=== PATIENT | female | born 2000 | race Caucasian/White ===

== ENCOUNTER → 2020-12-09 08:51 | Outpatient (CLI) | payer BC, SELFPAY ==
--- NOTE | ~2020-12-09 | US_ITS ---
US breast RT complete 12/09/2020 09:50 Indication: Right breast mass Procedure: High-resolution ultrasound of the right breast and axilla Comparison: No prior studies for comparison. Findings: Normal heterogeneous echotexture throughout the right breast. There are normal-appearing ly mph nodes of the right axilla, largest measuring 1.9 cm with normal fatty hilum. Impression: 1: No sonographic evidence for malignancy in the right breast. Normal-appearing right axillary lymph nodes, likely reactive. BI-RADS CATEGORY 2 - BENIGN FINDINGS Reviewed, dictated and finalized at location A. Impression: 1: No sonographic evidence for malignancy in the right breast. Normal-appearing right axillary lymph nodes, likely reactive. BI-RADS CATEGORY 2 - BENIGN FINDINGS
== END ==
PROVIDERS: Visit Provider Physician Assistant
DX: N63.10 Unspecified lump in the right breast, unspecified quadrant (principal)
CPT/HCPCS: 76641